=== PATIENT | female | born 1955 | race Caucasian/White ===

== ENCOUNTER 2017-05-27 19:09 | Emergency (ER) | payer MEDICAID ==
[2017-05-27 19:09] VITALS: BMI 37.1
[2017-05-27 19:26] VITALS: BP 104/76; PULSE 78; RESP 18; TEMP 98.8; O2SAT 99
[2017-05-27] MEDS ORDERED: Naproxen 500 MG TAB PO STA (20:27)
--- NOTE | 2017-05-27 20:31 | ED PDOC ---
Upper Extremity Pain/Injury Time Seen by Provider: 05/27/17 19:28 Chief Complaint (Nursing): Back Pain Chief Complaint (Provider): Shoulder pain History Per: Patient History/Exam Limitations: no limitations Current Symptoms Are (Timing): Still Present Additional Complaint(s): Elizabeth Fuentes, a 61 year old female, presents to the ED for shoulder pain. The patient reports that she missed a step and then fell down 2 stairs. Past Medical History Reviewed: Historical Data, Nursing Documentation, Vital Signs Vital Signs: Last Vital Signs Temp 98.8 F 05/27/17 19:23 Pulse 78 05/27/17 19:23 Resp 18 05/27/17 19:23 BP 104/76 05/27/17 19:23 Pulse Ox 99 05/27/17 19:23 - Medical History PMH: Arthritis, Back Problems, Depression, Diabetes (type II), GERD, Hypercholesterolemia, Hypothyroidism, Malignancy (right breast (chemotherapy x6 , radiation x35)) Denies: Chronic Kidney Disease - Surgical History Surgical History: No Surg Hx - Family History Family History: States: Unknown Family Hx - Immunization History Hx Tetanus Toxoid Vaccination: No Hx Influenza Vaccination: No Hx Pneumococcal Vaccination: No - Home Medications Home Medications: Ambulatory Orders Medication Instructions Recorded Levothyroxine Sodium [Levoxyl] 100 mg PO DAILY 02/07/16 QUEtiapine [SEROquel] 300 mg PO BID 02/07/16 Topiramate 50 mg PO DAILY 02/07/16 metFORMIN [glucOPHAGE] 500 mg PO DAILY 02/07/16 Ibuprofen [Motrin] 600 mg PO Q6 PRN #15 tab 05/27/16 Naproxen [Naprosyn Tab] 375 mg PO BID PRN #15 tab 07/20/16 Naproxen 500 mg PO Q12H PRN #20 ect 05/27/17 - Allergies Allergies/Adverse Reactions: Allergies Allergy/AdvReac Type Severity Reaction Status Date / Time No Known Allergies Allergy Verified 07/19/16 20:32 Review of Systems Musculoskeletal: Positive for: Shoulder Pain Physical Exam - Reviewed Nursing Documentation Reviewed: Yes Vital Signs Reviewed: Yes - Physical Exam Appears: Positive for: Non-toxic, No Acute Distress Head Exam: Positive for: ATRAUMATIC, NORMAL INSPECTION, NORMOCEPHALIC Skin: Positive for: Normal Color, Warm, Dry Eye Exam: Positive for: Normal appearance, EOMI, PERRL ENT: Positive for: Normal ENT Inspection Neck: Positive for: Normal, Painless ROM, Supple Cardiovascular/Chest: Positive for: Regular Rate, Rhythm, Chest Non Tender. Negative for: Tachycardia Respiratory: Positive for: Normal Breath Sounds. Negative for: Wheezing, Respiratory Distress Extremity: Positive for: Tenderness (C-spine tenderness.). Negative for: Normal ROM (Decreased ROM in shoulder due to pain.), Deformity (No maru deformity.), Swelling Neurologic/Psych: Positive for: Alert, Oriented, Gait - ECG O2 Sat by Pulse Oximetry: 99 (RA) Pulse Ox Interpretation: Normal Medical Decision Making Medical Decision Makin Initial Impression: 61 year old female presenting with shoulder pain Initial Plan: * RAD Naproxen 500mg PO * RAD cervical spine AP & LAT * RAD Shoulder right * Reevaluation Scribe Attestation Documented by Lucie Singleton acting as a scribe for Eve Jimenez PA-C. Scribe Attestation All medical record entries made by the Scribe were at my direction and personally dictated by me. I have reviewed the chart and agree that the record accurately reflects my personal performance of the history, physical exam, medical decision making, and the department course for this patient. I have also personally directed, reviewed, and agree with the discharge instructions and disposition. Disposition - Clinical Impression Clinical Impression: Neck pain - Patient ED Disposition Is Patient to be Admitted: No Counseled Patient/Family Regarding: Diagnosis, Need For Followup, Rx Given - Disposition Disposition: Routine/Home Disposition Time: 21:11 Condition: GOOD Prescriptions: Naproxen 500 mg PO Q12H PRN #20 ect PRN Reason: Pain, Severe (8-10) Instructions: Cervical Sprain (ED) Print Language: SOMALI
[2017-05-27] MEDS ORDERED: Naproxen 500 MG TAB PO ONE (20:40)
--- NOTE | 2017-05-28 10:15 | RAD ---
PROCEDURE: Radiographs of the Right Shoulder HISTORY: pain s/p fll COMPARISON: No prior. FINDINGS: BONES: No evidence of acute displaced fracture nor dislocation. The osseous structures appear intact. JOINTS: Mild degenerative changes of the acromioclavicular joint with slight spurring along the inferior margin of the AC joint. There also appears to be tiny osteophyte seen arising from the inferomedial aspect of the right humeral head. SOFT TISSUES: Normal. OTHER FINDINGS: None. IMPRESSION: No acute displaced fracture nor dislocation. Mild DJD as detailed above.
--- NOTE | 2017-05-28 11:14 | RAD ---
PROCEDURE: Cervical spine dated 05/27/2017 AP lateral open-mouth and swimmer's views of the cervical spine performed. Note that study is slightly limited due to partial obscuration of the distal tip of the odontoid by overlying occiput in the open-mouth projection. HISTORY: Pain. COMPARISON: None. FINDINGS: BONES: No definitive evidence of acute compression fractures no retropulsed fragments. Vertebral bodies exhibit relatively normal stature. Mild kyphosis centered at the C3-C4 level with straightening of the normal cervical lordosis above and below this level. Findings could be due to mild muscle spasm Vertebral bodies otherwise exhibit normal alignment. DISC SPACES: Mild degenerative spondylosis most notably affecting the C5-C6 level. . Small posterior marginal osteophyte formation seen at the C6-C7 and to a lesser degree C4-C5 levels. SOFT TISSUES: Prevertebral soft tissues grossly unremarkable OTHER FINDINGS: Note is made of mild side bending of the head to the left side. . IMPRESSION: Slightly limited study as described. No acute fractures. Mild degenerative spondylosis most notably affecting C5-C6 level as described. Minor kyphosis centered at the C3-C4 level with slight straightening of the normal cervical lordosis above and below this level. Findings could be due to mild muscle spasm
== END 2017-05-27 22:08 | disposition home or self-care (01) ==
LOC: H.ER 19:09
DX: M25.511 Pain in right shoulder (principal); M54.2 Cervicalgia; M54.9 Dorsalgia, unspecified; W10.9XXA Fall (on) (from) unspecified stairs and steps, initial encounter; Y92.89 Other specified places as the place of occurrence of the external cause